=== PATIENT | female | born 1970 | race African-American/Black ===

== ENCOUNTER 2019-11-13 14:06 | Observation (INO) | payer OTHER, SELFPAY ==
[2019-11-13] VITALS (16 sets, daily range): BP systolic 108–128; BP diastolic 56–73; PULSE 62–83; RESP 16–20; TEMP 36.4–36.9; O2SAT 10–100; BMI 30.8
--- NOTE | 2019-11-13 14:16 | ECG_ITS ---
Measurements Intervals [place] Rate: 67 P: 47 ID: [id number] QRS: 19 QRSD: 86 T: 15 QT: 440 QTc: 465 Interpretive Statements SINUS RHYTHM NORMAL ECG Electronically Signed On 11-13-2019 14:32:20 CDT by Leo Vaca D.O.
--- NOTE | 2019-11-13 14:32 | ED.SYNCOPE ---
HPI - Syncope General Chief Complaint: Syncope Stated Complaint: SYNCOPAL EPISODE Time Seen by Provider: 11/13/19 14:08 Source: patient Mode of arrival: EMS Limitations: no limitations History of Present Illness HPI narrative: Patient presents with chief complaint of syncopal episode while at work just prior to arrival. Patient states that 1 month ago she had to have a blood transfusion due to anemia in [facility]. Patient is unsure why she had anemia and states that she was never directed to follow-up with hematology. Patient states that she has a primary care physician Dr. Alhaji Broderick, but has not followed up with him since discharge from [facility] either. Patient states that last night she started her menstrual period and has had to change her pad approximately every hour. Patient states she has had heavy menstrual periods her entire life. Patient has never had any OB procedures or been put on any medications to curb her heavy menstrual periods. 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 Patient states she then believes that she passed out for a second. 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 They deny any seizure-like tonic-clonic motions or tongue biting. They did witness that it appeared the patient became incontinent on herself. The patient states she is not sure if she became incontinent on herself but she may actually have bled through her work attire. Patient denies ever having any changes in vision, hearing, nausea, vomiting, chest pain, shortness of breath. Patient denies any adverse symptoms or feelings of discomfort at this time. Patient denies smoking, drinking alcohol, or using any recreational drugs. Patient denies having diabetes or any other chronic medical conditions other than anemia. Patient denies taking any medications. Related Data Home Medications Medication Instructions Recorded Confirmed No Home Medications 11/13/19 11/13/19 Allergies Allergy/AdvReac Type Severity Reaction Status Date / Time No Known Allergies Allergy Verified 11/13/19 14:26 Review of Systems Review of Systems: Narrative: CONSTITUTIONAL: Denies fever, chills, or sweats. EYES: Denies visual changes, redness, or discharge. ENT: Denies rhinorrhea, congestion, sore throat, or otalgia. CARDIOVASCULAR: Denies chest pain, palpitations, or edema. RESPIRATORY: Denies cough or dyspnea. GASTROINTESTINAL: Denies abdominal pain, nausea, vomiting, or diarrhea. GENITOURINARY: Denies dysuria or hematuria. SKIN: Denies rash or itching. MUSCULOSKELETAL: Denies back pain, joint pain, or myalgia. NEUROLOGIC: Reports syncopal episode denies headache, numbness, dizziness, or weakness. PSYCHIATRIC: Denies anxiety or depression. [facility] Family History Family History (Updated 11/13/19 @ 16:23 by Augie Chapman RN) Mother Cancer Social History Social History Smoking status: Never smoker Second hand tobacco smoke exposure: No Alcohol intake: never Substance use: never Gender identity (if verbalized by the patient): Female Spiritual care concerns: No Agree to blood products: Yes Exam Narrative: Exam Narrative: GENERAL: Well-appearing, well-nourished, and in no acute distress. Patient wearing pants with stain to pelvic region. HEAD: Normocephalic, atraumatic. No swelling lacerations or outward signs of injury. EYES: PERRLA and EOMI. ENT: Nares clear, no rhinorrhea or epistaxis. Mucous membranes moist. Oropharynx without tonsillar hypertrophy exudate or other lesions. Bilateral TMs pearly jeffrey nonbulging, Tongue ring in place. No bleeding or bite hackett noted. NECK: Supple. No adenopathy or masses. No carotid bruits or JVD. Range of motion intact without pain. CHEST: Clear to auscultation. No respiratory distress. No wheezes rales or rhonchi HEART: Regular rate and rhythm. No m
[2019-11-13 14:38] LABS: Glucose Point of Care 84 (65-105)
[2019-11-13 14:44] LABS: Basophils Percent Auto 0.7 % (0.2-1.2); Eosinophils Percent Auto 0.3 % (0-4.4); Hematocrit 24.6 % (37.0-47.0); Immature Granulocyte Absolute 0.02 K/mm3 (0.00-0.031); Immature Granulocyte Percent A 0.3 % (0-0.5); Lymphocytes Percent Auto 10.4 % (18.3-44.2); Mean Corpuscular HGB Conc 26.4 g/dl (32-36); Mean Corpuscular Hemoglobin 18.5 pg (26-34); Mean Corpuscular Volume 70.1 fl (80-100); Mean Platelet Volume 9.9 fl (7.4-10.4); Monocytes Absolute Auto 0.3 K/mm3 (0.1-0.6); Monocytes Percent Auto 5.6 % (2.6-8.5); Neutrophils Absolute Auto 4.8 K/mm3 (1.3-6.7); Neutrophils Percent Auto 82.7 % (45.5-73.1); Platelet Count Result 361 k/mm3 (150-375); Red Blood Count 3.51 M/mm3 (4.2-5.4); Red Cell Distribution Width 22.5 % (11.5-14.5); White Blood Count 5.8 K/mm3 (4.5-10.0)
[2019-11-13 14:47] LABS: Hemoglobin 6.5 g/dL (12.0-15.0)
[2019-11-13 14:54] LABS: Ethanol < 10 mg/dL (<10)
[2019-11-13 14:55] LABS: Alanine Aminotransferase 20 U/L (4-35); Albumin Level 4.3 g/dL (3.5-5.1); Alkaline Phosphatase 73 U/L (38-126); Aspartate Amino Transferase 30 U/L (14-36); Bilirubin,Total 0.5 mg/dL (0.2-1.3); Blood Urea Nitrogen 14 mg/dL (7-17); Calcium 8.6 mg/dL (8.4-10.2); Carbon Dioxide 23 mmol/L (22-30); Chloride 107 mmol/L (98-107); Estimated CRCL calculation 68 ml/min; Estimated Glomerular Filt Rate > 60; Glucose 95 mg/dL (65-105); Potassium 3.9 mmol/L (3.4-5.0); Sodium 135 mmol/L (137-145)
[2019-11-13 15:07] LABS: Platelet Estimate Adequate (Adequate)
[2019-11-13 15:08] LABS: Anisocytosis 3+ (NORMAL); Hypochromasia 2+ (NORMAL)
[2019-11-13 15:23] LABS: Add Urine Microscopic? YES; Appearance Urine Cloudy (Clear); Bilirubin Urine Negative (Negative); Blood Urine 3+ (Negative); Color Urine Red (Yellow); Glucose Urine UA Negative (Negative); Ketones Urine Negative (Negative); Leukocyte Esterase Ur Negative LEU/UL (Negative); Mucus Urine Rare /lpf; Nitrate Urine Negative (Negative); Protein Urine 3+ mg/dL (Negative); RBC Urine >75 /hpf (0-2); Specific Grav Ur 1.018 (1.001-1.035); Squamous Epithelial Cell Urine Few /hpf (Few)
[2019-11-13 15:24] LABS: Immature Reticulocyte Fraction 23.5 % (3.0-15.9); Reticulocyte Hemoglobin Conten 17.1 pg (28.2-35.7); Reticulocyte Percent 1.86 % (0.7-4.3); Reticulocytes Absolute 0.06 B/L (32.2-175.7)
[2019-11-13 15:31] LABS: Transferrin 346 mg/dL (206-381)
[2019-11-13 15:32] LABS: Amphetamine Screen Urine Negative (Negative); Barbiturate Screen Urine Negative (Negative); Benzodiazepines Screen Urine Negative (Negative); Cannabinoid Screen Urine Negative (Negative); Cocaine Screen Urine Negative (Negative); Methadone Screen Urine Negative (Negative); Opiate Screen Urine Negative (Negative); Phencyclidine Screen Urine Negative (Negative)
[2019-11-13 15:33] LABS: Iron 23 ug/dL (37-170)
[2019-11-13 15:42] LABS: Percent Iron Saturation 5 % (20-50)
--- NOTE | 2019-11-13 16:16 | ADMGEN ---
This patient, Natalia Bay, was admitted to 3 [facility] Surg Room 319-01. Patient oriented to hospital policies and general routines including ID bracelet, bed and alarms, visiting hours, pain management, procedures, bathroom and other care routines, personal items, smoking policy, room service/diet, and visiting hours. Valuables list has been completed. Information on how to activate the Rapid Response Team has been discussed. Patient are encouraged to report perceived risks to care and to ask questions if they do not understand what they are told or what they should do.
[2019-11-13 16:31] LABS: Folic Acid 16.6 ng/mL (2.76->20)
--- NOTE | 2019-11-13 21:30 | PM.IMHP ---
H&P: HPI History of Present Illness Chief complaint: Syncope. Narrative: Natalia Bay is a 49-year-old female with history of heavy periods and anemia requiring blood transfusion who presented to the emergency department earlier today from her place of an appointment for evaluation after a syncopal episode. She was in her usual state of health when she woke this morning. 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 She parked the forklift, got out, and apparently slumped forward with brief loss of consciousness. Coworkers were able to lower her to the floor and she came to quite quickly. She was found to be profoundly anemic and is being admitted in this setting. With further questioning, she was hospitalized at [facility] in July 2019 with anemia attributed to heavy periods, and she did require blood transfusion at that time. She has a history of fibroids and tells me she has had myomectomy in the past, ?but they grew back.? She has monthly periods lasting approximately 5 to 6 days, and tells me that they are very heavy but she is uncertain as to on a tampon she uses in a day. She denies bleeding between periods. She has not noticed any blood in her stool. She has not had fever, chills, or sweats. No cold or flu symptoms. She denies nausea, vomiting, and diarrhea. No dysuria or hematuria. She is not on hormones. She previously took iron supplements, but is no longer on them for unclear reasons. Review of Systems Review of Systems: Narrative: A complete review of systems was conducted and is negative except for as detailed in HPI. [facility] Past Medical History Medical History (Updated 11/13/19 @ 23:23 by Latanya Amaya PA-C) Chronic anemia With history of blood transfusions. Uterine fibroid Surgical History Surgical History (Updated 11/13/19 @ 23:20 by Latanya Amaya PA-C) History of myomectomy Family History Family History (Updated 11/13/19 @ 23:20 by Latanya Amaya PA-C) Mother Lung cancer Social History Social History (Updated 11/13/19 @ 23:21 by Latanya Amaya PA-C) Social History: The patient lives in [place], [place]. 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 She is not and has no children. She denies alcohol, tobacco, and drug use. She designates her cousin, Lexi Ariza, as her surrogate decision maker and she wishes to be a full code. Spiritual care concerns: No Agree to blood products: Yes Meds Home Medications and Allergies Home Medications Medication Instructions Recorded Confirmed Type No Home Medications 11/13/19 11/13/19 History Allergies Allergy/AdvReac Type Severity Reaction Status Date / Time No Known Allergies Allergy Verified 11/13/19 14:26 Vital Signs Vital Signs - 24 hr 11/13/19 14:09 11/13/19 15:15 11/13/19 15:16 Temperature 98.2 F Pulse Rate 66 67 70 Respiratory Rate 20 Blood Pressure 116/73 121/68 113/70 Pulse Oximetry 100 11/13/19 15:17 11/13/19 15:44 11/13/19 15:49 Temperature Pulse Rate 83 80 81 Respiratory Rate 20 Blood Pressure 116/71 128/71 Pulse Oximetry 100 11/13/19 17:20 11/13/19 17:44 11/13/19 18:44 Temperature 97.6 F 97.9 F 98.2 F Pulse Rate 62 65 68 Respiratory Rate 16 16 16 Blood Pressure 115/59 L 113/64 123/57 L Pulse Oximetry 100 100 100 11/13/19 19:44 11/13/19 20:03 11/13/19 22:00 Temperature 97.9 F 97.9 F 97.9 F Pulse Rate 69 69 82 Respiratory Rate 16 16 16 Blood Pressure 116/60 116/60 114/59 L Pulse Oximetry 100 100 100 Exam Narrative: Exam Narrative: General: Well-developed female sitting up in bed in no acute distress. HEENT: Pupils reactive. Extraocular motions intact. Conjunctiva slightly pale. Oral mucosa moist. Neck: Supple. Respiratory: Lungs are clear to auscultation bilaterally. Cardiovascular: Regular rate and rhythm with S1-S2. Soft in a heard at the left upper sternal border. Gas
[2019-11-13 23:43] LABS: Hematocrit 28.3 % (37.0-47.0); Hemoglobin 8.1 g/dL (12.0-15.0)
[2019-11-14 04:00] VITALS: PULSE 82
[2019-11-14 05:59] VITALS: BP 114/69; PULSE 60; RESP 18; TEMP 36.4; O2SAT 100
[2019-11-14 06:25] LABS: Hematocrit 28.2 % (37.0-47.0); Hemoglobin 8.2 g/dL (12.0-15.0); Mean Corpuscular HGB Conc 29.1 g/dl (32-36); Mean Corpuscular Hemoglobin 21.2 pg (26-34); Mean Corpuscular Volume 72.9 fl (80-100); Mean Platelet Volume 9.9 fl (7.4-10.4); Platelet Count Result 309 k/mm3 (150-375); Red Blood Count 3.87 M/mm3 (4.2-5.4); Red Cell Distribution Width 22.8 % (11.5-14.5); White Blood Count 4.9 K/mm3 (4.5-10.0)
[2019-11-14 06:36] LABS: Blood Urea Nitrogen 14 mg/dL (7-17); Carbon Dioxide 24 mmol/L (22-30); Chloride 111 mmol/L (98-107); Estimated CRCL calculation 76 ml/min; Estimated Glomerular Filt Rate > 60; Glucose 86 mg/dL (65-105); Potassium 4.1 mmol/L (3.4-5.0); Sodium 136 mmol/L (137-145)
[2019-11-14 08:00] VITALS: PULSE 60
[2019-11-14 12:00] VITALS: PULSE 72
--- NOTE | 2019-11-14 13:00 | PM.DS ---
DS: Diagnosis Admitting Diagnosis Admitting Diagnosis: Anemia, unspecified Discharge Diagnosis (1) Profound anemia: Code(s): D64.9 - Anemia, unspecified Status: Acute Assessment and Plan: Presumably secondary to menorrhagia; no changes in her menstrual period length/blood loss. She was transfused 2 units packed red blood cells. Hgb stable today. IV venofer given this morning for low iron saturation. Hgb is stable at 8.2 Will d/c on daily iron pill Recommend follow up with [employer] [facility] and PCP after discharge H&H in 2-3 days for further monitoring Instructed patient to take caution when operating heavy machinery/driving (2) Syncope: Code(s): R55 - Syncope and collapse Status: Acute Assessment and Plan: Likely due to symptomatic anemia. No further episodes. Echo showed grade II diastolic dysfunction and mod increased left vent wall thickness; no vegetations noted. Tele showed sinus rhythm with occasional sinus tachycardia into 140s at highes; no other ectopy; asymptomatic F/u with PCP for monitoring echo results Caution advised while working/driving (3) Uterine fibroid: Code(s): D25.9 - Leiomyoma of uterus, unspecified Status: Acute Assessment and Plan: Reportedly she had a previous myomectomy. Patient reports no changes in her menstrual cycles; currently on menstrual period. She needs to follow-up with her OBGYN at [facility] on discharge. DS: Summary Hospital Course Reason for hospitalization: Syncope likely secondary to profound anemia due to menorrhagia from uterine fibroids Hospital Course: Patient is a 49 yo pre-menopausal F with history of heavy periods and anemia requiring blood transfusion who presented to the emergency department on 11/[address] of an employment for evaluation after a syncopal episode. 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 While in the ER she was found to be profoundly anemic and admitted under this setting. She has a history of fibroids and a myomectomy in the past, but they grew back . Her periods had been regular, but heavy; she could not quantify the amount of blood. Please see H&P for further details. Presenting VS: Temp Pulse Resp BP Pulse Ox 98.2 F 66 20 116/73 100 11/13/19 14:11/13/19 14:11/13/19 14:11/13/19 14:11/13/19 14:09 Presenting Pertinent labs: H&H 6.5/24.6 (11/13: 8.2/28.2), MCV 70.1, iron 23, TIBC 441, % iron sat 5, ferritin 6.00. UA showed red, cloudy urine, 3+ protein, 3+ blood, 2+ urobilinogen, >75 RBCs. CBC, chemistry, UA, tox screen otherwise unremarkable Micro: none Imaging: Echo 11/13 Summary 1. Left ventricular chamber dimension is normal. 2. Left ventricular systolic function is normal, estimated at 60-65%. 3. There is moderately increased left ventricular wall thickness. 4. The left ventricular diastolic function is grade II diastolic dysfunction. 5. E/e' 10 is mildly elevated. 6. Global longitudinal strain is abnormal at -15.8%. 7. Left atrial chamber dimension is mildly enlarged. 8. There is trace mitral valve regurgitation. 9. There is trace pulmonic regurgitation. ECG: Interpretive Statements SINUS RHYTHM NORMAL ECG Patient was admitted to the hospitalist service for further evaluation for profound anemia and syncope. Patient was transfused 2 uPRBcs during her stay. She was also given IV venofer as well and discharged on daily iron pill. It was felt her syncope was likely related to her profound anemia likely due to her menorrhagia f
[2019-11-14 14:00] VITALS: BP 122/64; PULSE 72; RESP 16; TEMP 37.2; O2SAT 100
[2019-11-14 16:00] VITALS: PULSE 74
--- NOTE | 2019-11-14 23:25 | ECHO_ITS ---
Patient Info Name: Natalia Bay Age: 49 years : 1970 Gender: Female Ht: 64 in Wt: 179 lbs BSA: 1.94 m2 HR: 63 bpm BP: 114 / 69 mmHg Technical Quality: Good Exam Date: 11/14/2019 10:00 AM Exam Location: [facility] Pulmonary Patient Status: Outpatient Admit Date: 11/13/2019 Staff Ordering Physician: Latanya Amaya PA-C Certified Lactation Educator: Segundo Otero RDCS, RT Attending Provider: Christopher Castellanos PA-C Referring Physician: Monique ROLLINS; Exam Type: CA echo doppler color flow Study Info Indications R01.1 - Cardiac murmur, unspecified Complete two-dimensional, color flow and Doppler transthoracic echocardiogram is performed. Summary 1. Left ventricular chamber dimension is normal. 2. Left ventricular systolic function is normal, estimated at 60-65%. 3. There is moderately increased left ventricular wall thickness. 4. The left ventricular diastolic function is grade II diastolic dysfunction. 5. E/e' 10 is mildly elevated. 6. Global longitudinal strain is abnormal at -15.8%. 7. Left atrial chamber dimension is mildly enlarged. 8. There is trace mitral valve regurgitation. 9. There is trace pulmonic regurgitation. Left Ventricle E/e' 10 is mildly elevated. Global longitudinal strain is abnormal at -15.8%. Left ventricular chamber dimension is normal. Left ventricular systolic function is normal, estimated at 60-65%. There is moderately increased left ventricular wall thickness. The left ventricular diastolic function is grade II diastolic dysfunction. Right Ventricle Right ventricular chamber dimension is normal. Right ventricular systolic function is normal. Left Atria Left atrial chamber dimension is mildly enlarged. Right Atria Right atrial chamber dimension is normal. Aortic Valve The aortic valve is trileaflet. There is no aortic valve stenosis. There is no aortic valve regurgitation. Pulmonic Valve There is trace pulmonic regurgitation. Mitral Valve There is no mitral valve stenosis. There is trace mitral valve regurgitation. Tricuspid Valve There is no tricuspid valve regurgitation. Pericardium/Pleural There is no pericardial effusion. Inferior Vena Cava Normal inferior vena cava with >50% collapse upon inspiration consistent with normal right atrial pressure, 5 mmHg. Aorta The aortic root size at the sinus of Valsalva is normal. Left Ventricular Outflow Tract Name Value Normal LVOT 2D LVOT Diameter 1.8 cm LVOT Doppler LVOT Peak Gradient 6 mmHg LVOT Mean Gradient 4 mmHg LVOT VTI 28 cm LVOT VTI/AV VTI Ratio 0.8 LVOT Stroke Volume 69 ml LVOT CO 4.4 l/min LVOT CI 2.3 l/min/m2 Pulmonic Valve Name Value Normal PV Doppler
== END 2019-11-14 16:40 | disposition home or self-care (01) ==
LOC: ANHED 15:14 → ANH3MEDSUR 20:46
PROVIDERS: Internal Medicine; Physician Assistant; Admitting Provider Internal Medicine; Emergency Provider Emergency Medicine; Visit Provider Physician Assistant
DX: D64.9 Anemia, unspecified (principal); N93.8 Other specified abnormal uterine and vaginal bleeding; R55 Syncope and collapse; D25.9 Leiomyoma of uterus, unspecified; Z79.899 Other long term (current) drug therapy
CPT/HCPCS: 36415; 36430; 80048; 80053; 80307; 81001; 81025; 82607; 82728; 82746; 82948; 83540; 83550; 84466; 85014; 85018; 85025; 85027; 85046; 86850; 86900; 86901; 86923; 93005; 93306; 96365; 96366; 99285; G0378; J1756; P9016

== ENCOUNTER 2020-02-28 00:02 | Observation (INO) | payer OTHER, SELFPAY ==
[2020-02-28] VITALS (31 sets, daily range): BP systolic 100–127; BP diastolic 45–74; PULSE 59–88; RESP 12–20; TEMP 36.4–37.1; O2SAT 96–100; BMI 30.4
--- NOTE | ~2020-02-28 | XR_ITS ---
EXAMINATION: XR chest 2V DATE: 02/28/2020 00:36 INDICATION: Shortness of breath. TECHNIQUE: Frontal and lateral views of the chest were obtained. COMPARISON: None. FINDINGS: The chest demonstrates clear lungs without pneumonia, pleural effusion, or pneumothorax. Th e heart size is normal. IMPRESSION: 1. No acute cardiopulmonary disease. Reviewed, dictated and finalized at location A.
--- NOTE | ~2020-02-28 | US_ITS ---
EXAMINATION: US pelvic complete EXAM DATE: 02/28/2020 11:53 INDICATION: Fibroids. TECHNIQUE: Pelvic transabdominal sonogram was performed. There are multiple grayscale and Doppler im ages available for interpretation. There is no prior study for comparison. FINDINGS: Uterus measures 19.0 x 12.5 x 10.2 cm, with multiple fibroids, largest measuring 10.3 x 9. 0 x 8.2 cm. This is obscuring the endometrial stripe which is not well-visualized. There is no free p elvic fluid. Right adnexa: The ovary measures 2.9 x 2.4 x 1.7 cm and is morphologically normal. Ovarian vascular f low confirmed. Left adnexa: The ovary measures 3.9 x 3.0 x 2.6 cm and is morphologically normal. Ovarian vascular fl ow confirmed. IMPRESSION: 1. Massive fibroid uterus. Reviewed, dictated and finalized at location B. IMPRESSION: 1. Massive fibroid uterus.
--- NOTE | 2020-02-28 00:18 | ECG_ITS ---
Measurements Intervals [place] Rate: 77 P: 61 MN: 169 QRS: 31 QRSD: 83 T: 44 QT: 421 QTc: 476 Interpretive Statements SINUS RHYTHM NORMAL ECG Electronically Signed On 02-28-2020 6:59:07 CDT by Leo Vaca D.O.
[2020-02-28] MEDS: SODIUM CHLORIDE 0.9% IV 1,000 ML 999 ML IV CONT (00:41)
[2020-02-28 00:45] LABS: Basophils Percent Auto 0.2 % (0.2-1.2); Immature Granulocyte Absolute 0.03 K/mm3 (0.00-0.031); Immature Granulocyte Percent A 0.6 % (0-0.5); Lymphocytes Absolute Auto 0.53 K/mm3 (0.9-3.2); Lymphocytes Percent Auto 10.6 % (18.3-44.2); Mean Corpuscular HGB Conc 26.7 g/dl (32-36); Mean Corpuscular Hemoglobin 17.3 pg (26-34); Mean Corpuscular Volume 64.9 fl (80-100); Mean Platelet Volume 9.5 fl (7.4-10.4); Monocytes Absolute Auto 0.3 K/mm3 (0.1-0.6); Monocytes Percent Auto 5.6 % (2.6-8.5); Neutrophils Absolute Auto 4.1 K/mm3 (1.3-6.7); Nucleated Red Blood Cells Absolute Auto 0.1 K/mm3 (0.0-0.012); Nucleated Red Blood Cells Perc 1.4 % (0.0-0.2); Platelet Count Result 306 k/mm3 (150-375); Red Blood Count 2.08 M/mm3 (4.2-5.4); Red Cell Distribution Width 21.3 % (11.5-14.5)
--- NOTE | 2020-02-28 00:50 | ED.DIZZY ---
HPI - Dizziness General Chief Complaint: Dizziness Stated Complaint: DIZZY Source: RN notes reviewed History of Present Illness HPI Narrative: Patient presents emergency department from work via EMS for dizziness. Patient states she is been feeling dizzy all day worse when she gets up and improve when she lays down. States she has a history of anemia which is required blood transfusions feels similar to past. She also notes shortness of breath with exertion. She does have any fevers or chills chest pain abdominal pain nausea vomiting or any other symptoms. Denies any blood in her stool.. Patient states she is currently on her menstrual cycle. Patient states she does have heavy menstrual cycles and this was thought to possibly be the cause of her anemia past Related Data Allergies Allergy/AdvReac Type Severity Reaction Status Date / Time No Known Allergies Allergy Verified 11/13/19 14:26 Review of Systems Review of Systems: Narrative: Gen.: Denies fevers or chills Eyes: Denies eye pain or visual change ENT: Denies congestion Respiratory: Shortness of breath with exertion CV: Denies chest pain or palpitations GI: Denies abdominal pain nausea, emesis or diarrhea denies burning, urgency, frequency or hematuria Musculoskeletal: Denies back pain or muscle pain Neuro: Reports dizziness Skin: Denies rash Except as documented, all other systems reviewed and negative [facility] Past Medical History Medical History Chronic anemia With history of blood transfusions. Uterine fibroid Surgical History Surgical History (Updated 11/13/19 @ 23:20 by Latanya Amaya PA-C) History of myomectomy Family History Family History (Updated 11/13/19 @ 23:20 by Latanya Amaya PA-C) Mother Lung cancer Social History Social History Social History: The patient lives in [place], [place]. 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 She denies alcohol, tobacco, and drug use. She designates her cousin, Lexi Ariza, as her surrogate decision maker and she wishes to be a full code. Gender identity (if verbalized by the patient): Female Spiritual care concerns: No Agree to blood products: Yes Exam Narrative: Exam Narrative: APPEARANCE: No acute distress, nontoxic, resting in bed EYES: EOMI HEENT: Normocephalic, atraumatic, OMM RESPIRATORY: No respiratory distress Clear to auscultation bilaterally with no rhonchi wheezing or rales. CARDIOVASCULAR: Regular rate and rhythm without murmurs rubs or gallops. ABDOMINAL: Soft, nontender, nondistended, no rebound or guarding MUSCULOSKELETAl: Moves all extremities. No clubbing, cyanosis or edema. NEURO: Awake and alert. Following commands, speech normal, no focal deficits SKIN:: Warm, dry. No rashes lesions or abrasions PSYCHIATRIC: Normal affect/mood, Course Course Emergency Course: Reviewed old records patient has been admitted for her anemia before in the past On discussed Dr. Clarke presentation work-up. Agrees with admission at this time. Request consult to HAND SCRAPER request patient be transfused 2 units PRBC Discussed with patient and family results of workup and diagnosis. Discussed need for admission. Patient and family understand and agree to current treatment plan Vital Signs Vital signs: Vital Signs Temperature 98.7 F 02/28/20 00:12 Pulse Rate 75 02/28/20 00:12 Respiratory Rate 14 02/28/20 00:12 Blood Pressure 126/72 02/28/20 00:12 Pulse Oximetry 100 02/28/20 00:12 Temperature 98.7 F 02/28/20 00:12 Pulse Rate 84 02/28/20 02:22 Respiratory Rate 16 02/28/20 02:22 Blood Pressure 121/74 02/28/20 02:22 Pulse Oximetry 100 02/28/20 02:22 MDM - Dizziness Lab Data Result diagrams: 02/28/20 00:38 02/28/20 00:38 Labs: Lab Results 02/28/20 02/28/20 02/28/20 Nic
[2020-02-28 00:51] LABS: Add Urine Microscopic? YES; Appearance Urine Cloudy (Clear); Bacteria Urine Trace /hpf; Bilirubin Urine Negative (Negative); Blood Urine Negative (Negative); Color Urine Yellow (Yellow); Glucose Urine UA Negative (Negative); Ketones Urine 1+ mg/dL (Negative); Leukocyte Esterase Ur Trace LEU/UL (Negative); Mucus Urine Rare /lpf; Nitrate Urine Negative (Negative); Protein Urine Negative (Negative); RBC Urine 0-2 /hpf (0-2); Specific Grav Ur 1.013 (1.001-1.035); Squamous Epithelial Cell Urine Occasional /hpf (Few); Urobilinogen Urine Negative mg/dL (<2.0)
[2020-02-28 00:54] LABS: Hemoglobin 3.6 g/dL (12.0-15.0)
[2020-02-28 00:55] LABS: Hematocrit 13.5 % (37.0-47.0)
[2020-02-28 00:56] LABS: Platelet Estimate Adequate (Adequate)
[2020-02-28 00:57] LABS: Alanine Aminotransferase 20 U/L (4-35); Albumin Level 4.1 g/dL (3.5-5.1); Alkaline Phosphatase 51 U/L (38-126); Anion Gap 12 mmol/L (8-16); Aspartate Amino Transferase 25 U/L (14-36); Bilirubin,Total 0.3 mg/dL (0.2-1.3); Blood Urea Nitrogen 12 mg/dL (7-17); Calcium 8.4 mg/dL (8.4-10.2); Carbon Dioxide 20 mmol/L (22-30); Chloride 104 mmol/L (98-107); Estimated Glomerular Filt Rate > 60; Glucose 94 mg/dL (65-105); Hypochromasia 3+ (NORMAL); Poikilocytosis 2+ (NORMAL); Potassium 4.1 mmol/L (3.4-5.0); Sodium 136 mmol/L (137-145)
--- NOTE | 2020-02-28 02:56 | ADMGEN ---
This patient, Natalia Bay, was admitted to Medical Room 257-01 at 0245. Patient/family oriented to hospital policies and general routines including ID bracelet, bed and alarms, visiting hours, pain management, procedures, bathroom and other care routines, personal items, smoking policy, room service/diet, and visiting hours. Valuables list has been completed. Information on how to activate the Rapid Response Team has been discussed. Patient/Family are encouraged to report perceived risks to care and to ask questions if they do not understand what they are told or what they should do.
[2020-02-28] MEDS: SODIUM CHLORIDE 0.9% IV 250 ML 30 ML IV CONT (03:35)
--- NOTE | 2020-02-28 09:15 | PM.IMHP ---
H&P: HPI History of Present Illness Date/Time: 02/28/20 09:15 Chief complaint: Symptomatic anemia Narrative: Natalia Bay is a 49 year old female with hx of hospitalizations for profound anemia due to menorrhagia here for dizziness, nausea and vomiting and found to have a Hgb 3.6. Patient has had menorrhagia but worse over the past 9-10 months. She has a history of fibroids and has had a myomectomy in the past. Was hospitalized at [facility] July 2019 and was found to be anemic attributed to her heavy periods. She received blood transfusion. She was hospitalized again here in November of 2019 for similar complaints and again found to be anemic. Hemoglobin was 6.5 and she was transfused 2 units of packed red blood cells. Hemoglobin climbed to the 8 range. She was discharged on iron. She states that she has been taking the iron tablets twice a day. She did follow-up with an OBGYN (Dr Simon Choi) after that hospitalization and was told just to continue the iron tablets. She states her weight has been stable. No other evidence of blood loss. She denies any melena, hematochezia, hematuria or hemoptysis. Her periods last about 7 days on average and are heavy for the 1st 3 days. She uses 5-6 tampons daily for the 1st 3 days. She also has abdominal cramping. Her last period ended 2 days ago after 9 days of bleeding. No metromenorrhagia. On the day prior to admission patient developed dizziness with nausea and vomiting. She denies any abdominal pain, chest pain, shortness of breath, cough, palpitations, headache, anosmia, dysgeusia, dysuria. His some slight back pain yesterday but this has resolved. She presented to the emergency room on the teamcenter consultant hours of admission. In the emergency room, patient was hemodynamically stable. Hemoglobin was 3.6. Labs otherwise were unremarkable. Chest x-ray was clear. Urine test was negative. Transfusion ordered and patient was admitted for further care. Currently receiving blood transfusion at this time. Review of Systems Review of Systems: All systems reviewed & are unremarkable except as noted in HPI and below PMFSH Past Medical History Medical History (Updated 02/28/20 @ 09:38 by Anirudh Goodman MD) Chronic anemia With history of blood transfusions. Menorrhagia Uterine fibroid Surgical History Surgical History History of myomectomy Family History Family History (Updated 02/28/20 @ 09:30 by Anirudh Goodman MD) Mother Throat cancer Social History Social History (Updated 02/28/20 @ 09:31 by Anirudh Goodman MD) Social History: The patient lives in [place], [place]. 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 She denies alcohol, tobacco, and drug use. She designates her Aunt, Belia as her surrogate decision maker if she is unable. She wishes to be a full code. Smoking status: Never smoker Alcohol intake: never Substance use: never Substance use type: does not use Gender identity (if verbalized by the patient): Female Spiritual care concerns: No Agree to blood products: Yes Meds Home Medications and Allergies Home Medications Medication Instructions Recorded Confirmed Type ferrous sulfate 324 mg PO DAILY #30 tablet 11/14/19 02/28/20 Rx Allergies Allergy/AdvReac Type Severity Reaction Status Date / Time No Known Allergies Allergy Verified 11/13/19 14:26 Vital Signs Vital Signs - 24 hr 02/28/20 00:12 02/28/20 00:26 02/28/20 00:42 Temperature 98.7 F Pulse Rate 75 86 79 Respiratory Rate 14 16 Blood Pressure 126/72 126/60 127/73 Pulse Oximetry 100 100 02/28/20 02:22 02/28/20 02:50 02/28/20 03:08 Temperature 98.6 F Pulse Rate 84 74 79 Respiratory Rate 16 12 Blood Pressure 121/74 119/62 Pulse Oximetry 100 100 02/28/20 03:35 02/28/20 03:50 02/28/20 04:00 Temperature 98.6 F 98.7 F Pulse Rate 79 86 86 Re
[2020-02-28] MEDS: FERROUS SULFATE 324 MG TABLET PO (14:14)
[2020-02-28 14:58] LABS: Hematocrit 20.1 % (37.0-47.0); Hemoglobin 6.1 g/dL (12.0-15.0)
[2020-02-29] VITALS: PULSE 63
[2020-02-29 04:00] VITALS: PULSE 58
[2020-02-29 05:40] LABS: Basophils Percent Auto 0.5 % (0.2-1.2); Eosinophils Absolute Auto 0.1 K/mm3 (0-0.3); Eosinophils Percent Auto 0.8 % (0-4.4); Hematocrit 25.5 % (37.0-47.0); Hemoglobin 7.9 g/dL (12.0-15.0); Immature Granulocyte Absolute 0.06 K/mm3 (0.00-0.031); Lymphocytes Absolute Auto 1.03 K/mm3 (0.9-3.2); Lymphocytes Percent Auto 17.4 % (18.3-44.2); Mean Corpuscular Hemoglobin 23.6 pg (26-34); Mean Corpuscular Volume 76.1 fl (80-100); Monocytes Absolute Auto 0.4 K/mm3 (0.1-0.6); Monocytes Percent Auto 7.4 % (2.6-8.5); Neutrophils Absolute Auto 4.3 K/mm3 (1.3-6.7); Neutrophils Percent Auto 72.9 % (45.5-73.1); Nucleated Red Blood Cells Absolute Auto 0.1 K/mm3 (0.0-0.012); Nucleated Red Blood Cells Perc 1.7 % (0.0-0.2); Platelet Count Result 215 k/mm3 (150-375); Red Blood Count 3.35 M/mm3 (4.2-5.4); Red Cell Distribution Width 24.6 % (11.5-14.5); White Blood Count 5.9 K/mm3 (4.5-10.0)
[2020-02-29 05:54] LABS: Anion Gap 7 mmol/L (8-16); Blood Urea Nitrogen 11 mg/dL (7-17); Calcium 8.2 mg/dL (8.4-10.2); Carbon Dioxide 22 mmol/L (22-30); Chloride 107 mmol/L (98-107); Estimated CRCL calculation 76 ml/min; Estimated Glomerular Filt Rate > 60; Glucose 89 mg/dL (65-105); Potassium 4.1 mmol/L (3.4-5.0); Sodium 136 mmol/L (137-145)
[2020-02-29 06:00] VITALS: BP 128/73; PULSE 64; RESP 16; TEMP 36.7; O2SAT 100
--- NOTE | 2020-02-29 07:56 | PM.IMHP ---
H&P: HPI History of Present Illness Date/Time: 02/29/20 07:56 Chief complaint: Symptomatic anemia Narrative: Natalia Bay is a 49 year old female Was admitted through the ER with a hemoglobin 3.6. She has a history of known fibroids apparently has had surgery for that before in the past. She has had some pregnancies but never carried went to term. She has received blood she has got a hemoglobin back up to 7.9. Ultrasound shows a markedly enlarged uterus and in fact is visual above umbilicus. Review of Systems Review of Systems: All systems reviewed & are unremarkable except as noted in HPI and below PMFSH Past Medical History Medical History Chronic anemia With history of blood transfusions. Menorrhagia Uterine fibroid Surgical History Surgical History History of myomectomy Family History Family History Mother Throat cancer Social History Social History Social History: The patient lives in [place], [place]. 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 She is single and has no children. She denies alcohol, tobacco, and drug use. She designates her Aunt, Belia as her surrogate decision maker if she is unable. She wishes to be a full code. Smoking status: Never smoker Alcohol intake: never Substance use: never Substance use type: does not use Gender identity (if verbalized by the patient): Female Spiritual care concerns: No Agree to blood products: Yes Meds Home Medications and Allergies Home Medications Medication Instructions Recorded Confirmed Type ferrous sulfate 324 mg PO DAILY #30 tablet 11/14/19 02/28/20 Rx Allergies Allergy/AdvReac Type Severity Reaction Status Date / Time No Known Allergies Allergy Verified 11/13/19 14:26 Vital Signs Vital Signs - 24 hr 02/28/20 08:00 02/28/20 08:50 02/28/20 10:00 Temperature 98.4 F 97.6 F Pulse Rate 83 85 85 Respiratory Rate 17 18 Blood Pressure 101/54 L 104/56 L Pulse Oximetry 100 100 02/28/20 12:00 02/28/20 14:00 02/28/20 15:52 Temperature 97.7 F 97.9 F Pulse Rate 78 75 72 Respiratory Rate 16 17 Blood Pressure 110/56 L 102/59 L Pulse Oximetry 100 100 02/28/20 16:00 02/28/20 16:07 02/28/20 17:07 Temperature 97.8 F 97.9 F Pulse Rate 68 64 72 Respiratory Rate 16 17 Blood Pressure 101/45 L 100/58 L Pulse Oximetry 100 100 02/28/20 19:45 02/28/20 19:55 02/28/20 20:00 Temperature 98.6 F 98.6 F Pulse Rate 74 74 64 Respiratory Rate 20 20 Blood Pressure 113/66 113/66 Pulse Oximetry 100 100 02/28/20 20:10 02/28/20 21:10 02/28/20 22:10 Temperature 98.4 F 97.8 F 98.4 F Pulse Rate 64 59 L 66 Respiratory Rate 20 16 18 Blood Pressure 112/60 115/72 123/74 Pulse Oximetry 100 100 100 02/28/20 22:25 02/29/20 00:00 02/29/20 04:00 Temperature 98.7 F Pulse Rate 60 63 58 L Respiratory Rate 20 Blood Pressure 118/74 Pulse Oximetry 100 02/29/20 06:00 Temperature 98.1 F Pulse Rate 64 Respiratory Rate 16 Blood Pressure 128/73 Pulse Oximetry 100 Exam Const: General: no acute distress Eyes: General: appearance normal, both eyes and all related structures Neck: Neck: supple and no JVD Thyroid: thyroid normal Resp: Effort & Inspection: normal respiratory effort Auscultation: clear to auscultation bilaterally Cardio: Rate: regular rate Rhythm: regular rhythm GI: Inspection: normal to inspection Percussion: Yes normal to percussion ( Uterus is palpable above the umbilicus) Auscultation: normal bowel sounds : General: Yes bladder normal to palpation External Female Exam: normal external appearance Speculum Exam - Vagina: normal vaginal discharge and No vaginal bleeding Speculum Exam - Cervix: nontender Bimanual exam- vagina & uterus: bladder normal t
[2020-02-29 08:00] VITALS: PULSE 63
[2020-02-29] MEDS: CIPROFLOXACIN 500 MG TAB PO (08:15)
[2020-02-29] MEDS: ACETAMINOPHEN 325 MG TABLET 650 MG PO (09:14)
[2020-02-29] MEDS: FERROUS SULFATE 324 MG TABLET PO (11:46)
[2020-02-29 12:00] VITALS: PULSE 76
[2020-02-29 14:00] VITALS: BP 116/62; PULSE 65; RESP 18; TEMP 36.6; O2SAT 100
--- NOTE | 2020-02-29 15:16 | PM.DS ---
DS: Admitting Diagnosis Admitting Diagnosis Admitting Diagnosis: Symptomatic anemia DS: Discharge Diagnosis Discharge Diagnosis (1) Profound anemia: Code(s): D64.9 - Anemia, unspecified Status: Acute Assessment and Plan: Hemoglobin 3.6 on admission. She is microcytic most likely related to iron deficiency from chronic blood loss. She was transfused 2U PRBC and repeat Hgb 6.1. She received 2 more units and Hgb climbed to 7.9. She denies any dizziness with ambulation now. Etiology most likely related to the menorrhagia. (2) Dizzy: Code(s): R42 - Dizziness and giddiness Status: Acute Assessment and Plan: Related to the profound anemia. This has resolved since hemoglobin is improved. (3) Nausea & vomiting: Code(s): R11.2 - Nausea with vomiting, unspecified Status: Acute Assessment and Plan: Suspect nausea and vomiting related to the dizziness. Patient's symptoms have resolved. She is eating and tolerating. (4) Uterine fibroid: Code(s): D25.9 - Leiomyoma of uterus, unspecified Status: Acute Assessment and Plan: Abdominal findings most likely related to fibroids. Pelvic ultrasound showng massive fibroid uterus. 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 (5) Menorrhagia: Code(s): N92.0 - Excessive and frequent menstruation with regular cycle Status: Acute Assessment and Plan: Menorrhagia most likely related to the fibroids. She is not on control. She has had now 3 hospitalizations for profound anemia requiring transfusion. Continue iron replacement. She will follw up with [employer]. (6) UTI (urinary tract infection): Code(s): N39.0 - Urinary tract infection, site not specified Status: Acute Assessment and Plan: UCx returned positive for EColi sensitive to Cipro. Cipro started. DS: Summary Hospital Course Reason for hospitalization: 49yo female with menorrhagia here for weakness and found to have severe anemia. Please see H&P for details Hospital Course: as above Time Spent with Patient Time attestation: Total time spent providing and/or coordinating discharge services: 34 minutes Time spent: Greater than 30 minutes Exam Narrative: Exam Narrative: AF 116/62 65 18 100% ra Gen - NARD Chest - CTA bilaterally CV - RRR S1/S2; Tele showing no significnat dysrhythmias Abd - abdomen was soft. nontender suprapubic mass appreciated. Ext - no pedal edema. Psych - normal mood and affect. Skin - warm and dry. DS: Data Data Completed and Pending Labs on day of discharge: Labs from last 24 hours 02/29/20 02/29/20 02/28/20 05:26 05:26 01:56 WBC 5.9 RBC 3.35 L Hgb 7.9 L Hct 25.5 L MCV 76.1 L D MCH 23.6 L D MCHC 31.0 L RDW 24.6 H Plt Count 215 MPV 9.0 Immature Gran % (Auto) 1.0 H Neut % (Auto) 72.9 Lymph % (Auto) 17.4 L [place] % (Auto) 7.4 Eos % (Auto) 0.8 Baso % (Auto) 0.5 Lymph # (Auto) 1.03 [place] # (Auto) 0.4 Eos # (Auto) 0.1 Baso # (Auto) 0.0 Abs Immat Gran (auto) 0.06 H Absolute Neuts (auto) 4.3 Absolute Nucleated RBC 0.1 H Nucleated RBC % 1.7 H Sodium 136 L Potassium 4.1 Chloride 107 Carbon Dioxide 22 Anion Gap 7 L BUN 11 Creatinine 0.80 Estim Creat Clear Calc 76 Estimated GFR > 60 Glucose 89 Calcium 8.2 L Blood Type B Positive Antibody Screen Negative Crossmatch See Detail Discharge Plan Discharge Attending physician on discharge: Anirudh Goodman Consulting providers: Cintia Hallman ; Jesus Treadwell Discharging Clinician: Anirudh Goodman Anticipated Discharge Date/Time: 02/29/20 15:24 Patient Disposition: Home, Self-Care Activity: as tolerated Diet: regular Discharge Instructions: Please avoid large gathering, wear face coverings in public and practice social distance. F
== END 2020-02-29 16:30 | disposition home or self-care (01) ==
LOC: ANHED 01:55 → ANH2MED 02:28
PROVIDERS: Admitting Provider Internal Medicine; Emergency Provider Emergency Medicine; Visit Provider Internal Medicine
DX: D50.9 Iron deficiency anemia, unspecified (principal); N92.0 Excessive and frequent menstruation with regular cycle; D25.9 Leiomyoma of uterus, unspecified; N39.0 Urinary tract infection, site not specified; B96.20 Unspecified Escherichia coli [E. coli] as the cause of diseases classified elsewhere; R11.2 Nausea with vomiting, unspecified
CPT/HCPCS: 36415; 36430; 71046; 76856; 80048; 80053; 81001; 81025; 85014; 85018; 85025; 86644; 86850; 86900; 86901; 86923; 87077; 87086; 87088; 87186; 93005; 96360; 96361; 99285; A9270; G0378; G0379; J7030; J7050; P9016